=== PATIENT | male | born 1975 | race Caucasian/White ===

== ENCOUNTER 2022-09-27 07:15 | Day surgery (SDC) | payer OTHER ==
[~2022-09-27] VITALS: Ht 172.7 cm; Wt 83.9 kg
== END 2022-09-27 19:45 | disposition home or self-care (01) ==
LOC: CIR.AMB 07:15
PROVIDERS: ATTEND Colon & Rectal Surgery
DX: K64.8 Other hemorrhoids (principal); K64.4 Residual hemorrhoidal skin tags; K64.2 Third degree hemorrhoids; K92.2 Gastrointestinal hemorrhage, unspecified; Z20.822 Contact with and (suspected) exposure to COVID-19